=== PATIENT | female | born 1980 | race African-American/Black ===

== ENCOUNTER 2019-04-05 06:42 | Emergency (ER) | payer MEDICAID ==
[~2019-04-05] VITALS: Ht 170.2 cm; Wt 117.9 kg
[2019-04-05 06:42] VITALS: BP 110/54
--- NOTE | 2019-04-05 06:42 | NUR ---
PT AMBULATED TO BED #2
--- NOTE | 2019-04-05 06:50 | NUR ---
38 Y/O F PRESENTS TO ED WITH C/O MIGRAINE ZAVALA X 7HOURS AGO. AAOX4. 05/26 ZAVALA, POUNDING ZAVALA. +NAUSEA AND LIGHT SENSITIVITY. PT HAS SORENESS TO FACE. PT SELF MEDICATED WITH TYLENOL AND EXCEDRIN ON 04/04 THEN MOTRIN AT 0100. PT ATTACHED TO MONITOR. SYSTEM. WILL CONTINUE TO MONITOR.
--- NOTE | 2019-04-05 07:07 | NUR ---
REPORT GIVEN TO EMILY GONZALEZ. TRANSFER OF CARE AT THIS TIME.
--- NOTE | 2019-04-05 07:09 | NUR ---
ER AT BEDSIDE
[2019-04-05] MEDS ORDERED: METOCLOPRAMIDE 10 MG/2 ML INJ VIAL IVP ONE (07:20)
[2019-04-05] MEDS ORDERED: NACL 0.9% 1,000 ML IV ONE (07:20)
[2019-04-05] MEDS ORDERED: diphenhydrAMINE 50 MG/ML VIAL IVP ONE (07:20)
--- NOTE | 2019-04-05 07:28 | NUR ---
Female Sequins Stringer accompanied female patient for BREAST EXAM.
[2019-04-05] MEDS ORDERED: KETOROLAC 15 MG/ML VIAL IVP ONE (08:40)
--- NOTE | 2019-04-05 08:40 | NUR ---
PT RESTING IN BED WITH EYES CLOSED, AROUSABLE TO NAME, U/S AT BEDISDE JUST FINISHED, PT REPORTS PAIN AT 02/23 STATING THAT PAIN MEDS DID NOT HELP RELIEVE PAIN.
--- NOTE | 2019-04-05 08:47 | NUR ---
PT BRADYCARDIC AT 42 BEATS PER MIN, PER PT USUALLY HAS LOW HEART RATE AND LOW BP, CURRENT BP 105/45. PT DENIES CP, DIZZINES, N/V, NO EDEMA PRESENT.
[2019-04-05] MEDS ORDERED: ACETAMINOPHEN EXTRA STRENGTH 500 MG TAB ONE (09:28)
[2019-04-05] MEDS ORDERED: ACETAMINOPHEN EXTRA STRENGTH 500 MG TAB PO ONE (09:30)
--- NOTE | 2019-04-05 10:03 | NUR ---
pt resting in bed, arousable to name, vss, reports tylenol helped w/ pain, pain at 7/10, reports sensitivity to light.
--- NOTE | 2019-04-05 12:35 | NUR ---
IV removed, catheter intact and site benign. Applied folded 4x4 gauze and tape to stop bleeding.
--- NOTE | 2019-04-05 12:40 | NUR ---
Patient discharged with v/s stable. Written and verbal after care instructions given and explained. Patient alert, oriented and verbalized understanding of instructions. Ambulatory with steady gait. All questions addressed prior to discharge. ID band removed. Patient advised to follow up with PMD. Rx of VISTARIL, MOTRIN given. Patient educated on indication of medication including possible reaction and side effects. Opportunity to ask questions provided and answered.
[2019-04-05 12:41] VITALS: BP 111/57
== END 2019-04-05 12:40 | disposition home or self-care (01) ==
LOC: MED 06:42
DX: R51 Headache (principal); N63.20 Unspecified lump in the left breast, unspecified quadrant; G43.909 Migraine, unspecified, not intractable, without status migrainosus
CPT/HCPCS: 76641; 81002; 81025; 96374; 96375; 99284; J1200; J1885; J2765; Q0092

== ENCOUNTER 2019-05-13 07:04 | Emergency (ER) | payer MEDICAID ==
[~2019-05-13] VITALS: Ht 167.6 cm; Wt 128.8 kg
[2019-05-13 07:13] VITALS: BP 109/77
--- NOTE | 2019-05-13 07:18 | NUR ---
Patient ambulated to bed 12. RN evaluating patient at bedside.
[2019-05-13] MEDS ORDERED: HYDROcodone/APAP 5/325 MG 1 TAB TAB PO ONE (07:30)
[2019-05-13] MEDS ORDERED: PROCHLORPERAZINE 10 MG/2 ML VIAL IM ONE (07:30)
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
--- NOTE | 2019-05-13 08:58 | NUR ---
PT SLEEPING IN BED, AROUSABLE TO NAME, REPORTS PAIN IS GOING AWAY AT 2/10. STATES SHE FEELS DIZZY, SAT PT UP, PT REPORTED THAT SITTING UP HELPED WITH DIZZINESS.
--- NOTE | 2019-05-13 09:39 | NUR ---
PT RESTING IN BED, REPORTING THAT DIZZINESS IS INCREASING, PT BRADYCARDIC AT 48, BP 99/54. PT STATES THAT HER BP IS USUALLY LOW. ER NOTIFIED.
--- NOTE | 2019-05-13 12:02 | NUR ---
PT SLEEPING IN BED, AROUSABLE TO NAME, PT STATES PAIN IS AT 7/10 AND STILL REPORTS DIZINESS. PT STILL LIBRA AT 48, COSTUMING SUPERVISOR SHOWS SINUS RHYTHM, CAP REFIL <3 SEC, AAOX4.
[2019-05-13 12:52] VITALS: BP 106/63
--- NOTE | 2019-05-13 12:52 | NUR ---
Patient discharged with v/s stable. Written and verbal after care instructions given and explained. Patient alert, oriented and verbalized understanding of instructions. Ambulatory with steady gait. All questions addressed prior to discharge. ID band removed. Patient advised to follow up with PMD. Rx of COMPAZINE AND IMITREX given. Patient educated on indication of medication including possible reaction and side effects. Opportunity to ask questions provided and answered. CALLED EX- FOR A RIDE.
== END 2019-05-13 12:52 | disposition home or self-care (01) ==
LOC: MED 07:04
DX: G43.909 Migraine, unspecified, not intractable, without status migrainosus (principal); M54.5 Low back pain; Z98.890 Other specified postprocedural states; Z88.6 Allergy status to analgesic agent
CPT/HCPCS: 96372; 99283; J0780

== ENCOUNTER 2019-05-15 02:06 | Emergency (ER) | payer MEDICAID, OTHER ==
[~2019-05-15] VITALS: Ht 167.6 cm; Wt 122.5 kg
[2019-05-15 02:08] VITALS: BP 125/59
[2019-05-15] MEDS ORDERED: MORPHINE SULFATE 4 MG/ML SYR IM ONE (02:25)
[2019-05-15] MEDS ORDERED: KETOROLAC 60 MG/2 ML VIAL IM ONE (02:25)
[2019-05-15 04:56] VITALS: BP 125/59
== END 2019-05-15 04:56 | disposition home or self-care (01) ==
LOC: MED 02:06
DX: S30.0XXA Contusion of lower back and pelvis, initial encounter (principal); Z98.890 Other specified postprocedural states; Z88.8 Allergy status to other drugs, medicaments and biological substances; W19.XXXA Unspecified fall, initial encounter; Y93.F9 Activity, other caregiving; Y92.89 Other specified places as the place of occurrence of the external cause; Y99.8 Other external cause status
CPT/HCPCS: 72170; 81025; 96372; 99283; J1885; J2270; Q0092

== ENCOUNTER 2019-05-25 03:28 | Emergency (ER) | payer MEDICAID, OTHER ==
[~2019-05-25] VITALS: Ht 167.6 cm; Wt 122.5 kg
[2019-05-25 03:40] VITALS: BP 131/70
--- NOTE | 2019-05-25 03:40 | NUR ---
to bed # 08 ambulatory
[2019-05-25 04:00] VITALS: BP 131/70
--- NOTE | 2019-05-25 04:00 | NUR ---
38 Y/O F PRESENTS TO ED WITH C/O MIGRAINE X2 DAYS. +NAUSEA AND LIGHT SENSITIVITY. PT SELF MEDICATED WITH TYLENOL, NO RELIEF OF SYMPTOMS. NO VISUAL CHANGES. LIGHT TURNED OFF FOR PT COMFORT. BEDRAIL X1 UP. BED IN LOCKED POSITION. WILL CONTINUE TO MONITOR.
[2019-05-25] MEDS ORDERED: MORPHINE SULFATE 4 MG/ML SYR IM ONE (04:20)
--- NOTE | 2019-05-25 04:50 | NUR ---
PT REPORTS UNCHANGED PAIN LEVEL, PAIN 10/10. ERMD MADE AWARE.
[2019-05-25] MEDS ORDERED: traMADol 50 MG TAB PO ONE (05:05)
== END 2019-05-25 05:58 | disposition home or self-care (01) ==
LOC: MED 03:28
DX: G43.909 Migraine, unspecified, not intractable, without status migrainosus (principal); Z88.6 Allergy status to analgesic agent
CPT/HCPCS: 96372; 99283; J2270

== ENCOUNTER 2019-07-07 15:19 | Emergency (ER) | payer SELFPAY ==
[~2019-07-07] VITALS: Ht 170.2 cm; Wt 117.9 kg
[2019-07-07 15:25] VITALS: BP 125/68
--- NOTE | 2019-07-07 15:25 | NUR ---
PT AMBULATED TO BED
[2019-07-07] MEDS ORDERED: HYDROcodone/APAP 7.5/325 MG 1 TAB PO ONE (15:45)
[2019-07-07] MEDS ORDERED: PROCHLORPERAZINE 10 MG/2 ML VIAL IM ONE (15:45)
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
--- NOTE | 2019-07-07 15:53 | NUR ---
38/F PRESENTS TO ED, C/O HEADACHE SINCE LAST NIGHT. REPORTS NAUSEA, DENIES VOMITING. DENIES LIGHT OR SOUND SENSITIVITY, DENIES DIZZINESS. PT AWAKE AND ALERT, PERRLA 3MM, GCS 15, SKIN NORMAL COLOR WARM AND DRY, RR EVEN AND UNLABORED. HX MIGRAINE OTC TYLENOL WITHOUT RELIEF
[2019-07-07 16:25] VITALS: BP 125/68
--- NOTE | 2019-07-07 16:25 | NUR ---
Patient discharged with v/s stable. Written and verbal after care instructions given and explained. Patient alert, oriented and verbalized understanding of instructions. Ambulatory with steady gait. All questions addressed prior to discharge. ID band removed. Patient advised to follow up with PMD. Rx of tylenol, tramadol given. Patient educated on indication of medication including possible reaction and side effects. Opportunity to ask questions provided and answered.
== END 2019-07-07 16:25 | disposition home or self-care (01) ==
LOC: MED 15:19
DX: G43.909 Migraine, unspecified, not intractable, without status migrainosus (principal); Z88.6 Allergy status to analgesic agent
CPT/HCPCS: 99281; 99283; J0780

== ENCOUNTER 2019-09-07 14:53 | Emergency (ER) | payer SELFPAY ==
[~2019-09-07] VITALS: Ht 168.9 cm; Wt 132.0 kg
[2019-09-07 14:56] VITALS: BP 109/54
--- NOTE | 2019-09-07 15:16 | NUR ---
PT AMBULATED TO CHAIR C
--- NOTE | 2019-09-07 15:18 | NUR ---
AMB TO BED 12
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
[2019-09-07] MEDS ORDERED: ACETAMINOPHEN EXTRA STRENGTH 500 MG TAB PO ONE (15:30)
[2019-09-07] MEDS ORDERED: NACL 0.9% 1,000 ML IV ONE (15:30)
[2019-09-07] MEDS ORDERED: diphenhydrAMINE 50 MG/ML VIAL IVP ONE (15:30)
[2019-09-07] MEDS ORDERED: PROCHLORPERAZINE 10 MG/2 ML VIAL IVP ONE (15:30)
--- NOTE | 2019-09-07 16:00 | NUR ---
PT REFUSED IV INSERTION, ONIEL TAFOYA AWARE AND WILL CANCEL IV ORDERS.
[2019-09-07 16:10] VITALS: BP 109/54
--- NOTE | 2019-09-07 16:10 | NUR ---
Patient discharged with v/s stable. Written and verbal after care instructions given and explained. Patient alert, oriented and verbalized understanding of instructions. Ambulatory with steady gait. All questions addressed prior to discharge. ID band removed. Patient advised to follow up with PMD. Rx of SUMITRIPTAN, FLEXIRIL given. Patient educated on indication of medication including possible reaction and side effects. Opportunity to ask questions provided and answered.
== END 2019-09-07 16:10 | disposition home or self-care (01) ==
LOC: MED 14:53
DX: G43.909 Migraine, unspecified, not intractable, without status migrainosus (principal); Z88.8 Allergy status to other drugs, medicaments and biological substances; Z98.890 Other specified postprocedural states
CPT/HCPCS: 99283; Q0163

== ENCOUNTER 2019-09-14 23:48 | Emergency (ER) | payer SELFPAY ==
[~2019-09-14] VITALS: Ht 167.6 cm; Wt 122.5 kg
[2019-09-14 23:50] VITALS: BP 123/68
--- NOTE | 2019-09-14 23:50 | NUR ---
TO BED # 08 AMBULATORY
--- NOTE | 2019-09-15 00:03 | NUR ---
flu swab collected.
--- NOTE | 2019-09-15 00:20 | NUR ---
38 y/o female c/o cough x 2 days. rates pain 9/10 and describes it as aching and sore and is located on the chest and back. pt states chest pain is aggrevated with coughing. heart sound s1s2 present. no sob or resp distress noted. lung sounds are rhonchi bilat upper lobes, dry cough pesent, congested and runny nose present. changes of appetite present. denies any n,v,d,or fever. vss. a & o x4. allergies: motrin pmh: none.
[2019-09-15] MEDS ORDERED: ALBUTEROL 0.083% 2.5 MG/3 ML NEBU INH ONE (01:30)
--- NOTE | 2019-09-15 01:40 | NUR ---
RESPIRATORY AT BEDSIDE ADMINISTERING BREATHING TX.
--- NOTE | 2019-09-15 01:52 | NUR ---
XRAY AT BEDSIDE
[2019-09-15] MEDS ORDERED: HYDROcodone/APAP 5/325 MG 1 TAB TAB PO ONE ×2 (02:30→02:45)
--- NOTE | 2019-09-15 02:38 | NUR ---
C/O PAIN 04/25 TO THROAT. PAIN MEDS ADMINISTERED PER MD ORDERS. NOTIFIED PT TO CALL FOR HER RIDE HOME AT THIS TIME.
[2019-09-15 02:57] VITALS: BP 123/68
--- NOTE | 2019-09-15 02:57 | NUR ---
Patient discharged with v/s stable. Written and verbal after care instructions given and explained. Patient alert, oriented and verbalized understanding of instructions. Ambulatory with steady gait. All questions addressed prior to discharge. ID band removed. Patient advised to follow up with PMD. Rx of BENZONATATE, ALBUTEROL given. Patient educated on indication of medication including possible reaction and side effects. Opportunity to ask questions provided and answered.
== END 2019-09-15 02:57 | disposition home or self-care (01) ==
LOC: MED 23:48
DX: J20.9 Acute bronchitis, unspecified (principal); Z88.6 Allergy status to analgesic agent
CPT/HCPCS: 71045; 87804; 94640; 99284; J7613; Q0092

== ENCOUNTER 2019-09-17 11:47 | Emergency (ER) | payer SELFPAY ==
[~2019-09-17] VITALS: Ht 167.6 cm; Wt 122.5 kg
[2019-09-17 12:18] VITALS: BP 121/68
[2019-09-17] MEDS ORDERED: DEXAMETHASONE 10 MG/ML VIAL IM ONE (14:15)
--- NOTE | 2019-09-17 14:30 | NUR ---
Patient discharged with v/s stable. Written and verbal after care instructions given and explained. Patient alert, oriented and verbalized understanding of instructions. Ambulatory with steady gait. All questions addressed prior to discharge. ID band removed. Patient advised to follow up with PMD. Rx of PREDNISONE, TYLENOL given. Patient educated on indication of medication including possible reaction and side effects. Opportunity to ask questions provided and answered.
[2019-09-17 14:32] VITALS: BP 121/68
== END 2019-09-17 14:30 | disposition home or self-care (01) ==
LOC: MED 11:47
DX: J40 Bronchitis, not specified as acute or chronic (principal); Z88.8 Allergy status to other drugs, medicaments and biological substances
CPT/HCPCS: 96372; 99283; J1100

== ENCOUNTER 2020-02-10 01:05 | Emergency (ER) | payer SELFPAY ==
[~2020-02-10] VITALS: Ht 175.3 cm; Wt 81.6 kg
--- NOTE | 2020-02-10 01:05 | NUR ---
PT TAKEN TO TENT
[2020-02-10 01:24] VITALS: BP 116/57
--- NOTE | 2020-02-10 01:50 | NUR ---
COVID SWAB COLLECTED AND WALKED OVER TO LAB.
[2020-02-10 02:27] VITALS: BP 116/57
--- NOTE | 2020-02-10 02:28 | NUR ---
Patient discharged with v/s stable. Written and verbal after care instructions given and explained. Patient alert, oriented and verbalized understanding of instructions. Ambulatory with steady gait. All questions addressed prior to discharge. ID band removed. Patient advised to follow up with PMD. Rx of ALBUTEROL, TRAMADOL given. Patient educated on indication of medication including possible reaction and side effects. Opportunity to ask questions provided and answered.
--- NOTE | 2020-02-11 11:08 | NUR ---
COVID RESULTS RECEIVED FROM LAB. RESULT- NEGATIVE. COPY OF LAB RESULT PLACED IN INFECTION CONTROL MAILBOX.
== END 2020-02-10 02:28 | disposition home or self-care (01) ==
LOC: MED 01:05
DX: R06.02 Shortness of breath (principal); Z20.828 Contact with and (suspected) exposure to other viral communicable diseases; M79.10 Myalgia, unspecified site; R51 Headache
CPT/HCPCS: 99283; U0003

== ENCOUNTER 2020-02-20 12:20 | Emergency (ER) | payer SELFPAY ==
[~2020-02-20] VITALS: Ht 172.7 cm; Wt 104.3 kg
[2020-02-20 12:27] VITALS: BP 108/72
--- NOTE | 2020-02-20 12:35 | NUR ---
C/O N/V/D, BODY ACHES, CHILLS, PAIN DURING RESPIRATIONS X2 DAYS. PT TESTED + FOR COVID 1 WEEK AGO. PT STATES SHE FEELS SOB D/T PAIN WHEN BREATHING. RESP EVEN AND UNLABORED. SKIN COOL/DRY IN TACT. MUCOUS MEMBRANES PINK AND MOIST. VSS. NO FEVER AT THIS TIME. ALLERGIES: MOTRIN
--- NOTE | 2020-02-20 12:58 | NUR ---
dr bowman at chair side evaluating pt.
[2020-02-20 13:17] VITALS: BP 108/72
--- NOTE | 2020-02-20 13:18 | NUR ---
Patient discharged with v/s stable. Written and verbal after care instructions given and explained regarding covid 19 . Patient alert, oriented and verbalized understanding of instructions. Ambulatory with steady gait. All questions addressed prior to discharge. ID band removed. Patient advised to follow up with PMD. Rx of imodium , motrin and zofran given. Patient educated on indication of medication including possible reaction and side effects. Opportunity to ask questions provided and answered.
--- NOTE | 2020-02-20 13:20 | NUR ---
excuse from work given.
== END 2020-02-20 13:20 | disposition home or self-care (01) ==
LOC: MED 12:20
DX: U07.1 COVID-19 (principal); Z88.6 Allergy status to analgesic agent; Z98.890 Other specified postprocedural states
CPT/HCPCS: 71045; 99283

== ENCOUNTER 2020-03-12 12:53 | Emergency (ER) | payer SELFPAY ==
[~2020-03-12] VITALS: Ht 167.6 cm; Wt 117.9 kg
[2020-03-12 12:58] VITALS: BP 127/84
--- NOTE | 2020-03-12 13:13 | NUR ---
39 YO FEMALE C/O COUGH , INTERMITENT HEADACHE, X 1 MONTH,SOB X 1 WEEK, LOSS OF TASTE/SMELL X 3 DAYS. COVID TESTED + 02/10/20. MED HX: DENIES
--- NOTE | 2020-03-12 13:14 | NUR ---
RAD AT BEDSIDE
[2020-03-12] MEDS ORDERED: MORPHINE SULFATE 4 MG/ML SYR IM ONE (13:35)
[2020-03-12 13:58] VITALS: BP 127/84
--- NOTE | 2020-03-12 13:58 | NUR ---
Patient discharged with v/s stable. Written and verbal after care instructions given and explained. Patient alert, oriented and verbalized understanding of instructions. Ambulatory with steady gait. All questions addressed prior to discharge. ID band removed. Patient advised to follow up with PMD. Rx of PREDNISONE AND NORCO given. Patient educated on indication of medication including possible reaction and side effects. Opportunity to ask questions provided and answered.
== END 2020-03-12 13:58 | disposition home or self-care (01) ==
LOC: MED 12:53
DX: R05 Cough (principal); R06.02 Shortness of breath; Z88.6 Allergy status to analgesic agent; Z98.86 Personal history of breast implant removal; Z20.828 Contact with and (suspected) exposure to other viral communicable diseases
CPT/HCPCS: 71045; 96372; 99284; J2270; Q0092; U0003

== ENCOUNTER 2020-05-14 10:39 | Emergency (ER) | payer SELFPAY ==
[~2020-05-14] VITALS: Ht 170.2 cm; Wt 145.6 kg
[2020-05-14 10:46] VITALS: BP 106/64
--- NOTE | 2020-05-14 10:52 | NUR ---
PATIENT AMBULATED TO ER BED 01
--- NOTE | 2020-05-14 11:01 | NUR ---
PATIENT PRESENTS TO ED WITH SORE THROAT SINCE TODAY AND LOSS OF SMELL AND TASTE SINCE TODAY. PT STATES THAT SHE HAS HAD A DRY COUGH SINCE YESTERDAY. 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 UNKNOWN EXPOSURE TO ANY COVID + PTS. DENIES N/V/D; SKIN IS PINK/WARM/DRY; AAOX4 WITH EVEN AND STEADY GAIT; LUNGS CLEAR BL; HR EVEN AND REGULAR; PT DENIES ANY FEVER AT THIS TIME; PATIENT STATES PAIN OF 0/10 AT THIS TIME; VSS; PATIENT POSITIONED FOR COMFORT; HOB ELEVATED; BEDRAILS UP X2; BED DOWN. ER MD MADE AWARE OF PT STATUS.
[2020-05-14] MEDS ORDERED: KETOROLAC 60 MG/2 ML VIAL IM ONE (11:05)
--- NOTE | 2020-05-14 11:14 | NUR ---
COVID SWAB OBTAINED AND WALKED SPECIMEN TO LAB
--- NOTE | 2020-05-14 11:19 | NUR ---
Patient discharged with v/s stable. Written and verbal after care instructions given and explained. Patient alert, oriented and verbalized understanding of instructions. Ambulatory with steady gait. All questions addressed prior to discharge. ID band removed. Patient advised to follow up with PMD. Rx of Prednisone & [place] given. Patient educated on indication of medication including possible reaction and side effects. Opportunity to ask questions provided and answered.
[2020-05-14 11:20] VITALS: BP 106/64
== END 2020-05-14 11:19 | disposition home or self-care (01) ==
LOC: MED 10:39
DX: J02.9 Acute pharyngitis, unspecified (principal); Z20.828 Contact with and (suspected) exposure to other viral communicable diseases; Z88.6 Allergy status to analgesic agent; Z98.890 Other specified postprocedural states
CPT/HCPCS: 96372; 99283; J1885; U0003

== ENCOUNTER 2020-08-23 11:48 | Emergency (ER) | payer SELFPAY ==
[~2020-08-23] VITALS: Ht 167.6 cm; Wt 108.9 kg
[2020-08-23 11:59] VITALS: BP 123/76
--- NOTE | 2020-08-23 12:26 | NUR ---
PATIENT A/OX4, ABLE TO MAKE NEEDS KNOWN. REPORTS HAVING N/V X2 DAYS AND DIARRHEA SINCE YESTERDAY. DENIES SOB. NO FEVER/CHILLS. ABD SOFT AND NON-DISTENDED. C/O RT WRIST PAIN 02/23 NOT RELIEVED WITH USE OF TYLENOL. KEPT PATIENT IN A COMFORTABLE POSITION. SIDE RAILS UP X2. ERMD AWARE. PMH: NONE LPM: 08/23/2020
[2020-08-23] MEDS ORDERED: ACETAMINOPHEN EXTRA STRENGTH 500 MG TAB PO ONE (12:30)
--- NOTE | 2020-08-23 12:51 | NUR ---
LAB AT BEDSIDE. URINE CUP LEFT WITH PATIENT.
[2020-08-23 12:56] LABS: BASOPHILS % (AUTO) 0.3 % (0.0-2.0); EOSINOPHILS # (AUTO) 0.2 K/uL (0-0.4); EOSINOPHILS % (AUTO) 3.3 % (0.0-4.0); HEMATOCRIT 35.8 % (36-48); HEMOGLOBIN 11.5 g/dL (12.0-16.0); LYMPHOCYTES # (AUTO) 1.9 K/uL (2.5-16.5); LYMPHOCYTES % (AUTO) 34.6 % (20.5-51.1); MEAN CORPUSCULAR HEMOGLOBIN 26 pg (27-31); MEAN CORPUSCULAR HGB CONC 32 g/dL (33-37); MEAN CORPUSCULAR VOLUME 81.6 fL (80-94); MONOCYTES # (AUTO) 0.4 K/uL (0.8-1.0); MONOCYTES % (AUTO) 7.3 % (1.7-9.3); NEUTROPHILS % (AUTO) 54.5 % (42.2-75.2); PLATELET COUNT (AUTO) 219 K/uL (140-450); RED BLOOD CELL COUNT(AUTO) 4.38 MIL/uL (4.20-5.40); RED CELL DISTRIBUTION WIDTH 15.4 % (11.6-13.7); WHITE BLOOD COUNT (AUTO) 5.6 K/uL (4.8-10.8)
[2020-08-23 13:21] LABS: ALBUMIN 2.7 g/dL (3.4-5.0); ANION GAP 8.5 (8-16); CARBON DIOXIDE 28.1 mmol/L (21-32); CREATININE 0.9 mg/dL (0.6-1.3); POTASSIUM 3.6 mmol/L (3.5-5.1); TOTAL BILIRUBIN 0.3 mg/dL (0.0-1.0)
--- NOTE | 2020-08-23 13:58 | NUR ---
PATIENT UNABLE TO GIVE URINE AT THIS TIME. ERMD AWARE. MAY GO AHEAD AND DC, PATIENT HAS HER MENSRTUAL PRD TODAY.
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
[2020-08-23 14:00] VITALS: BP 123/76
== END 2020-08-23 13:58 | disposition home or self-care (01) ==
LOC: MED 11:48
DX: K52.9 Noninfective gastroenteritis and colitis, unspecified (principal); M25.531 Pain in right wrist; E66.9 Obesity, unspecified; R19.7 Diarrhea, unspecified; Z88.6 Allergy status to analgesic agent
CPT/HCPCS: 36415; 80053; 81002; 81025; 85025; 99283

== ENCOUNTER 2020-09-01 13:49 | Emergency (ER) | payer SELFPAY ==
[~2020-09-01] VITALS: Ht 167.6 cm; Wt 113.4 kg
[2020-09-01 14:01] VITALS: BP 128/55
--- NOTE | 2020-09-01 14:05 | NUR ---
LOBBY Addendum: 09/01/20 at 1410 by [email or web address] HANDED ON URINE CUP.
--- NOTE | 2020-09-01 14:43 | NUR ---
PATIENT LEFT WITHOUT BEING SEEN BY ONIEL GRADY. NO FURTHER CARE PROVIDED FOR PATIENT.
== END 2020-09-01 14:43 | disposition left against medical advice (07) ==
LOC: MED 13:49
DX: M54.5 Low back pain (principal); Z53.21 Procedure and treatment not carried out due to patient leaving prior to being seen by health care provider

== ENCOUNTER 2020-10-07 12:05 | Emergency (ER) | payer MEDICAID ==
[~2020-10-07] VITALS: Ht 172.7 cm; Wt 113.4 kg
[2020-10-07 12:11] VITALS: BP 116/63
[2020-10-07] MEDS ORDERED: diazePAM 5 MG TAB PO ONE (13:10)
[2020-10-07] MEDS ORDERED: HYDROcodone/APAP 5/325 MG 1 TAB TAB PO ONE (13:10)
[2020-10-07] MEDS ORDERED: ONDANSETRON 4 MG ODT PO ONE (13:10)
[2020-10-07] MEDS ORDERED: ACET-8386 PO (13:22)
[2020-10-07] MEDS ORDERED: DIAZ5TAB7 PO (13:22)
[2020-10-07 13:42] VITALS: BP 116/63
== END 2020-10-07 13:43 | disposition home or self-care (01) ==
LOC: MED 12:05
DX: M54.5 Low back pain (principal); G89.29 Other chronic pain; Z79.899 Other long term (current) drug therapy; Z88.8 Allergy status to other drugs, medicaments and biological substances
CPT/HCPCS: 99284; Q0162

== ENCOUNTER 2020-12-02 05:49 | Emergency (ER) | payer SELFPAY ==
[~2020-12-02] VITALS: Ht 172.7 cm; Wt 151.0 kg
[~2020-12-02 05:49] MED LIST: ACET-8386 PO; DIAZ5TAB7 PO
[2020-12-02 05:54] VITALS: BP 100/82
--- NOTE | 2020-12-02 06:08 | NUR ---
PT PRESENTS TO THE ED WITH C/O LOWER BACK PAIN. PT REPORTS "TURNING WEIRD" WHILE TAKING A SHOWER AND FALLING ON HER TAIL BONE. PT STATES SHE TOOK TYLENOL 5HRS PRIOR TO ED ARRIVAL BUT WITH MINIMAL RELIEF. PT DENIES NUMBNESS OR TINGLING. PT ABLE TO MOVE ALL EXTREMITIES. PT DENIES OTHER MEDICAL HX.
[2020-12-02] MEDS ORDERED: fentaNYL citrate 0.05 MG/ML VIAL IM ONE (06:15)
--- NOTE | 2020-12-02 07:07 | NUR ---
ENDORSED CONTINUITY OF CARE TO AM RN
--- NOTE | 2020-12-02 07:08 | NUR ---
Report received from EMILY Keane/Maciej RN; care assumed.
[2020-12-02] MEDS ORDERED: DIAZ5TAB7 PO (07:39)
[2020-12-02] MEDS ORDERED: ACET-10509 PO (07:39)
[2020-12-02] MEDS ORDERED: HYDROcodone/APAP 5/325 MG 1 TAB TAB PO ONE (07:55)
[2020-12-02 08:00] VITALS: BP 125/63
--- NOTE | 2020-12-02 08:00 | NUR ---
Patient discharged with v/s stable. Written and verbal after care instructions given and explained. Patient alert, oriented and verbalized understanding of instructions. Ambulatory with steady gait. All questions addressed prior to discharge. ID band removed. Patient advised to follow up with PMD. Rx of acetaminophen, valium given. Patient educated on indication of medication including possible reaction and side effects. Opportunity to ask questions provided and answered.
== END 2020-12-02 08:00 | disposition home or self-care (01) ==
LOC: MED 05:49
DX: S39.012A Strain of muscle, fascia and tendon of lower back, initial encounter (principal); Z88.6 Allergy status to analgesic agent; Z79.899 Other long term (current) drug therapy; W01.0XXA Fall on same level from slipping, tripping and stumbling without subsequent striking against object, initial encounter; Y93.E1 Activity, personal bathing and showering; Y92.89 Other specified places as the place of occurrence of the external cause; Y99.8 Other external cause status
CPT/HCPCS: 72100; 96372; 99283; J3010

== ENCOUNTER 2020-12-08 16:48 | Emergency (ER) | payer SELFPAY ==
[~2020-12-08] VITALS: Ht 162.6 cm; Wt 148.3 kg
[~2020-12-08 16:48] MED LIST changes: +ACET-10509 PO
[2020-12-08 16:55] VITALS: BP 133/70
[2020-12-08] MEDS ORDERED: PSEU-250 PO (17:24)
[2020-12-08] MEDS ORDERED: BENZ-196 PO (17:24)
[2020-12-08 17:31] VITALS: BP 133/70
== END 2020-12-08 17:32 | disposition home or self-care (01) ==
LOC: MED 16:48
DX: J06.9 Acute upper respiratory infection, unspecified (principal); Z88.8 Allergy status to other drugs, medicaments and biological substances; Z79.899 Other long term (current) drug therapy
CPT/HCPCS: 99283

== ENCOUNTER 2021-01-10 09:37 | Emergency (ER) | payer SELFPAY ==
[~2021-01-10] VITALS: Ht 167.6 cm; Wt 117.9 kg
[~2021-01-10 09:37] MED LIST changes: +BENZ-196 PO; +PSEU-250 PO
[2021-01-10 09:45] VITALS: BP 134/88
--- NOTE | 2021-01-10 09:49 | NUR ---
40 YEAR OLD FEMALE COMPLAINS OF MIGRAINE AND ANXIETY X LAST NIGHT. PT STATES MIGRAINE IS CONSTANT ACHING. PT STATES HISTORY OF MIGRAINE, DENIES NAUSEA, VOMITTING DIARRHEA. PT DENIES DIZZINESS OR LOC. PT AOX4, BREATHING EVEN AND UNLABORED, SKIN WARM AND DRY. BED IN LOWEST POSITION, LOCKED, BED RAIL UPX1. PMH - MIGRAINES ALLERGIES - IBUPROFEN
--- NOTE | 2021-01-10 09:49 | NUR ---
pt ambulated to bed 10.
[2021-01-10] MEDS ORDERED: KETOROLAC 30 MG/ML VIAL IVP ONE (09:55)
[2021-01-10] MEDS ORDERED: ACETAMINOPHEN EXTRA STRENGTH 500 MG TAB PO ONE (09:55)
[2021-01-10] MEDS ORDERED: METOCLOPRAMIDE 10 MG/2 ML INJ VIAL IVP ONE (09:55)
[2021-01-10] MEDS ORDERED: NACL 0.9% 1,000 ML IV ONE (09:55)
[2021-01-10] MEDS ORDERED: SUMAtriptan succinate 25 MG TAB PO ONE (10:15)
[2021-01-10] MEDS ORDERED: METOCLOPRAMIDE 10 MG TAB PO ONE (10:15)
[2021-01-10 10:44] LABS: BASOPHILS % (AUTO) 0.4 % (0.0-2.0); EOSINOPHILS # (AUTO) 0.1 K/uL (0-0.4); EOSINOPHILS % (AUTO) 2.1 % (0.0-4.0); HEMOGLOBIN 11.1 g/dL (12.0-16.0); LYMPHOCYTES # (AUTO) 2.5 K/uL (2.5-16.5); LYMPHOCYTES % (AUTO) 36.5 % (20.5-51.1); MEAN CORPUSCULAR HEMOGLOBIN 25 pg (27-31); MEAN CORPUSCULAR HGB CONC 32 g/dL (33-37); MEAN CORPUSCULAR VOLUME 80.3 fL (80-94); MONOCYTES # (AUTO) 0.6 K/uL (0.8-1.0); MONOCYTES % (AUTO) 9.3 % (1.7-9.3); NEUTROPHILS # (AUTO) 3.5 K/uL (1.8-7.7); NEUTROPHILS % (AUTO) 51.7 % (42.2-75.2); PLATELET COUNT (AUTO) 238 K/uL (140-450); RED BLOOD CELL COUNT(AUTO) 4.35 MIL/uL (4.20-5.40); RED CELL DISTRIBUTION WIDTH 17.2 % (11.6-13.7); WHITE BLOOD COUNT (AUTO) 6.7 K/uL (4.8-10.8)
--- NOTE | 2021-01-10 10:48 | NUR ---
PT STILL UNABLE TO URINATE, ERMD MADE AWARE
[2021-01-10 10:55] LABS: ANION GAP 17.7 (8-16); CREATININE 0.8 mg/dL (0.6-1.3); POTASSIUM 3.7 mmol/L (3.5-5.1)
[2021-01-10] MEDS ORDERED: METO-486 PO (11:24)
[2021-01-10] MEDS ORDERED: IMI25 PO (11:24)
[2021-01-10 11:46] VITALS: BP 134/88
--- NOTE | 2021-01-10 11:46 | NUR ---
Patient discharged with v/s stable. Written and verbal after care instructions about migraine headache given and explained. Patient alert, oriented and verbalized understanding of instructions. Ambulatory with steady gait. All questions addressed prior to discharge. ID band removed. Patient advised to follow up with PMD. Rx of imitrex, reglan given. Patient educated on indication of medication including possible reaction and side effects. Opportunity to ask questions provided and answered.
== END 2021-01-10 11:46 | disposition home or self-care (01) ==
LOC: MED 09:37
DX: G43.909 Migraine, unspecified, not intractable, without status migrainosus (principal); Z88.6 Allergy status to analgesic agent; Z79.899 Other long term (current) drug therapy
CPT/HCPCS: 36415; 80048; 81025; 85025; 99283; J8597

== ENCOUNTER 2021-02-20 09:48 | Emergency (ER) | payer SELFPAY ==
[~2021-02-20] VITALS: Ht 167.6 cm; Wt 117.9 kg
[~2021-02-20 09:48] MED LIST changes: +IMI25 PO; +METO-486 PO
[2021-02-20 09:52] VITALS: BP 126/89
--- NOTE | 2021-02-20 10:00 | NUR ---
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 PM:ROOPA. Addendum: 02/20/21 at [facility] by [facility] NO DEFORMITY OR SWELLING TO RIGHT WRIST
[2021-02-20] MEDS ORDERED: METH-1681 PO (11:53)
[2021-02-20 12:13] VITALS: BP 132/84
--- NOTE | 2021-02-20 12:15 | NUR ---
Patient discharged with v/s stable. Written and verbal after care instructions given SHOULDER PAIN, AND LUMBAR SPRAIN and explained. Patient alert, oriented and verbalized understanding of instructions. Ambulatory with steady gait. All questions addressed prior to discharge. ID band removed. Patient advised to follow up with PMD. Rx of ROBAXIN 500MG PO TID PRN PAIN given. Patient educated on indication of medication including possible reaction and side effects. Opportunity to ask questions provided and answered.
== END 2021-02-20 12:15 | disposition home or self-care (01) ==
LOC: MED 09:48
DX: S39.012A Strain of muscle, fascia and tendon of lower back, initial encounter (principal); M25.531 Pain in right wrist; M25.551 Pain in right hip; I10 Essential (primary) hypertension; X58.XXXA Exposure to other specified factors, initial encounter; Y93.89 Activity, other specified; Y92.89 Other specified places as the place of occurrence of the external cause; Y99.8 Other external cause status
CPT/HCPCS: 99283

== ENCOUNTER 2021-03-25 19:24 | Emergency (ER) | payer SELFPAY ==
[~2021-03-25] VITALS: Ht 167.6 cm; Wt 150.1 kg
[~2021-03-25 19:24] MED LIST changes: +METH-1681 PO
[2021-03-25 21:04] VITALS: BP 123/69
--- NOTE | 2021-03-25 21:07 | NUR ---
TO LOBBY A/W BED AMBULATORY
--- NOTE | 2021-03-25 22:55 | NUR ---
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 PT STATES R WRIST THROBBING ACHY. 01/23, TAKEN NAPROXEN AND UNK MUSCLE RELAXANT THAT DOES NOT WORK. ROM INTACT. SKIN INTACT WARM PINK DRY. AX: MOTRIN PMH: DENIES
--- NOTE | 2021-03-25 23:45 | NUR ---
splint placed by emt
--- NOTE | 2021-03-26 00:15 | NUR ---
Patient discharged with v/s stable. Written and verbal after care instructions given and explained. Patient verbalized understanding. Ambulatory with steady gait. All questions addressed prior to discharge. Advised to follow up with PMD.
[2021-03-26 00:17] VITALS: BP 123/69
== END 2021-03-26 00:15 | disposition home or self-care (01) ==
LOC: MED 19:24
DX: M65.4 Radial styloid tenosynovitis [de Quervain] (principal); G43.909 Migraine, unspecified, not intractable, without status migrainosus; Z88.6 Allergy status to analgesic agent; Z79.899 Other long term (current) drug therapy
CPT/HCPCS: 73110; 99283

== ENCOUNTER 2021-03-30 10:24 | Emergency (ER) | payer SELFPAY ==
[~2021-03-30] VITALS: Ht 167.6 cm; Wt 127.0 kg
[2021-03-30 10:40] VITALS: BP 103/76
--- NOTE | 2021-03-30 10:46 | NUR ---
Liseth fierro in [facility] - 03/30/21 at 1048 by [email or web address] TENT 1.
--- NOTE | 2021-03-30 10:48 | NUR ---
LOBBY Addendum: 03/30/21 at 1055 by [email or web address] HANDED ON URINE CUP.
--- NOTE | 2021-03-30 10:50 | NUR ---
C/O SUBJECTIVE FEVER, CHILLS, DIARRHEA X 5 DAYS, 10/10 LOWER ABDOMINAL X 4 DAYS. TEMP 97.7 AT THIS TIME. COVID TESTED POSITIVE IN JANUARY 2020. PMH: LEFT BREAST CYST & SURGERY
--- NOTE | 2021-03-30 12:46 | NUR ---
Patient being evaluated by DR GARRETT at TRIAGE ROOM.
--- NOTE | 2021-03-30 12:50 | NUR ---
COVID PCR SWAB DONE.
[2021-03-30] MEDS: ONDANSETRON 4 MG ODT PO ONE (12:52)
[2021-03-30] MEDS ORDERED: AMOX-1000 PO (12:54)
[2021-03-30] MEDS ORDERED: LOPE-143 PO (12:54)
[2021-03-30] MEDS ORDERED: ONDA-24 PO (12:54)
--- NOTE | 2021-03-30 13:30 | NUR ---
+ RELIEF AFTER ZOFRAN. DENIES NAUSEA.
[2021-03-30 13:32] VITALS: BP 111/74
--- NOTE | 2021-03-30 13:32 | NUR ---
Patient discharged with v/s stable. Written and verbal after care instructions given and explained. Patient alert, oriented and verbalized understanding of instructions. Ambulatory with steady gait. All questions addressed prior to discharge. ID band removed. Patient advised to follow up with PMD. Rx of Amoxicillin/Potassium Clav, Imodium, Zofran given. Patient educated on indication of medication including possible reaction and side effects. Opportunity to ask questions provided and answered.
== END 2021-03-30 13:32 | disposition home or self-care (01) ==
LOC: MED 10:24
DX: R19.7 Diarrhea, unspecified (principal); R50.9 Fever, unspecified; R51.9 Headache, unspecified; Z20.822 Contact with and (suspected) exposure to COVID-19
CPT/HCPCS: 99283; Q0162; U0003

== ENCOUNTER 2021-11-14 01:16 | Emergency (ER) | payer SELFPAY ==
[~2021-11-14] VITALS: Ht 167.6 cm; Wt 145.1 kg
[~2021-11-14 01:16] MED LIST changes: +AMOX-1000 PO; -DIAZ5TAB7 PO; +DIAZ5TAB8 PO; +LOPE-143 PO; +ONDA-188 PO
[2021-11-14 01:37] VITALS: BP 100/53
[2021-11-14] MEDS ORDERED: KETOROLAC 15 MG/ML VIAL IM ONE (02:55)
[2021-11-14] MEDS ORDERED: methocarbamoL 500 MG TAB PO ONE (02:55)
--- NOTE | 2021-11-14 03:37 | NUR ---
41 Y/O FEMALE BIBS, C/O SCIATICA PARTH. PT STATES SHE HAS FLARE-UPS FROM TIME TO TIME AND THE PAIN IN HER LEGS PREVENT HER FROM SLEEPING. PT IS ABLE TO ABULATE BUT IS IN PAIN, (03/26). PT IS A/OX4, GCS-15; UNLABORED BREATHING AND SPEAKING IN FULL SENTENCES; PT DENIES FEVER, CP, SOB, OR COUGH AT THIS TIME. NO INJURY NOTED. NO BRUISING OR DEFORMITIES. PT IS RESTING BED WITH HOB RAISED AND RAIL UP X1. PT DENIES PMH ALL: IBUPROFEN DENIES MEDS
[2021-11-14 03:47] VITALS: BP 100/53
--- NOTE | 2021-11-14 03:48 | NUR ---
Patient discharged with v/s stable. Written and verbal after care instructions given and explained. Patient verbalized understanding. Ambulatory with steady gait. All questions addressed prior to discharge. Advised to follow up with PMD. VSS, A/OX4, UNLABORED BREATHING, AMBULATORY, AND CALM DEMEANOR.
== END 2021-11-14 03:48 | disposition home or self-care (01) ==
LOC: MED 01:16
DX: M54.50 Low back pain, unspecified (principal); G89.29 Other chronic pain; Z79.2 Long term (current) use of antibiotics; Z79.899 Other long term (current) drug therapy; Z79.891 Long term (current) use of opiate analgesic; Z88.6 Allergy status to analgesic agent
CPT/HCPCS: 96372; 99283; J1885

== ENCOUNTER 2021-12-11 08:02 | Emergency (ER) | payer SELFPAY ==
[~2021-12-11] VITALS: Ht 167.6 cm; Wt 156.7 kg
[2021-12-11 08:02] VITALS: BP 109/65
--- NOTE | 2021-12-11 08:05 | NUR ---
PATIENT AMBULATED TO BED 6. HAND ON URINE CUP.
--- NOTE | 2021-12-11 08:25 | NUR ---
41 y/o female bib self with c/o abdominal cramping pain and migraine headache x 1 day. Patient states she took Tylenol with no relief. Patient complains of 10/10 pain level and has light sensitivity. LMP 12/10/2021. ALLERGY: IBUPROFEN
--- NOTE | 2021-12-11 08:45 | NUR ---
Dr. Harding evaluating patient at bedside.
[2021-12-11] MEDS ORDERED: MORPHINE SULFATE 4 MG/ML SYR IM ONE (08:50)
[2021-12-11] MEDS ORDERED: ACET-8386 PO (09:08)
--- NOTE | 2021-12-11 09:33 | NUR ---
Patient discharged with v/s stable. Written and verbal after care instructions given. Patient alert, oriented and verbalized understanding of instructions. Ambulatory with steady gait. All questions addressed prior to discharge. ID band removed. Patient advised to follow up with PMD. Rx of Hydrocodone/Acetaminophen given. Opportunity to ask questions provided and answered.
--- NOTE | 2021-12-11 09:34 | NUR ---
Chart checked and completed. The patient's care was reviewed and supervised by Priya Swenson RN.
== END 2021-12-11 09:33 | disposition home or self-care (01) ==
LOC: MED 08:02
DX: R10.30 Lower abdominal pain, unspecified (principal); R19.7 Diarrhea, unspecified; Z88.6 Allergy status to analgesic agent; Z79.899 Other long term (current) drug therapy
CPT/HCPCS: 81002; 81025; 96372; 99283; J2270

== ENCOUNTER 2022-01-02 17:49 | Emergency (ER) | payer OTHER ==
[~2022-01-02] VITALS: Ht 167.6 cm; Wt 131.5 kg
[2022-01-02 17:55] VITALS: BP 102/56
--- NOTE | 2022-01-02 18:00 | NUR ---
PT AMB TO BED 9.
--- NOTE | 2022-01-02 18:09 | NUR ---
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 PT DENIES CHEST PAIN, SOB. DENIES FEVER/CHILLS. DENIES N/V/D. PT STATES SHE TOOK IBUPROFEN PRIOR TO ARRIVAL TO ED /NO SYMPTOMATIC RELIEF. DENIES PMH ALLERGIES: IBUPROFEN
[2022-01-02] MEDS ORDERED: HYDROcodone/APAP 7.5/325 MG 1 TAB PO ONE (19:15)
--- NOTE | 2022-01-02 19:17 | NUR ---
Pt report given to EMILY WILDER. Transfer of care at this time.
[2022-01-02] MEDS ORDERED: HYDR-5080 PO (19:20)
== END 2022-01-02 19:45 | disposition home or self-care (01) ==
LOC: MED 17:49
DX: S63.501A Unspecified sprain of right wrist, initial encounter (principal); Z79.899 Other long term (current) drug therapy; Z88.6 Allergy status to analgesic agent; X58.XXXA Exposure to other specified factors, initial encounter; Y93.89 Activity, other specified; Y92.89 Other specified places as the place of occurrence of the external cause; Y99.8 Other external cause status
CPT/HCPCS: 99283

== ENCOUNTER 2022-03-30 19:57 | Emergency (ER) | payer MEDICAID, OTHER ==
[~2022-03-30] VITALS: Ht 167.6 cm; Wt 151.5 kg
[~2022-03-30 19:57] MED LIST changes: +HYDR-5080 PO
[2022-03-30 20:25] VITALS: BP 110/67
--- NOTE | 2022-03-30 20:33 | NUR ---
Patient ambulated well to bed 3. Patient on monitor.
[2022-03-30] MEDS ORDERED: CIPR500T4 PO (21:36)
[2022-03-30] MEDS ORDERED: ONDA8TAB87 PO (21:36)
[2022-03-30] MEDS ORDERED: ACET-8386 PO (21:36)
[2022-03-30] MEDS ORDERED: PRED20TA5 PO (21:36)
[2022-03-30 21:46] VITALS: BP 116/74
--- NOTE | 2022-03-30 21:48 | NUR ---
Patient discharged with v/s stable. Written and verbal after care instructions given and explained. Patient alert, oriented and verbalized understanding of instructions. Ambulatory with steady gait. All questions addressed prior to discharge. ID band removed. Patient advised to follow up with PMD. Rx of CIPRO,ZOFRAN,PREDNISONE,HYDROCODONE/ACETAMINOPHEN given. Patient educated on indication of medication including possible reaction and side effects. Opportunity to ask questions provided and answered.
== END 2022-03-30 21:46 | disposition home or self-care (01) ==
LOC: MED 19:57
DX: R05.9 Cough, unspecified (principal); Z20.822 Contact with and (suspected) exposure to COVID-19; R19.7 Diarrhea, unspecified
CPT/HCPCS: 99283

== ENCOUNTER 2022-05-06 12:40 | Emergency (ER) | payer MEDICAID ==
[~2022-05-06] VITALS: Ht 167.6 cm; Wt 148.8 kg
[~2022-05-06 12:40] MED LIST changes: +CIPR500T4 PO; +ONDA8TAB87 PO; +PRED20TA5 PO
[2022-05-06 12:46] VITALS: BP 120/77
--- NOTE | 2022-05-06 12:51 | NUR ---
Liseth fierro in [facility] - 05/06/22 at 1254 by LASHON Pt ambulated to bed 3, slow, steady gait.
--- NOTE | 2022-05-06 12:51 | NUR ---
Pt wheelchair assisted to bed 03.
[2022-05-06] MEDS ORDERED: HYDROcodone/APAP 7.5/325 MG 1 TAB PO ONE (13:20)
[2022-05-06] MEDS ORDERED: ACET-8386 PO (13:38)
--- NOTE | 2022-05-06 13:52 | NUR ---
PTS LEFT KNEE WAS DRESSED USING ZAIRA WRAP X2. +CMS. PT WAS GIVEN CRUTCHES AND DISPLAYED SAFE USE OF CRUTCHES.
--- NOTE | 2022-05-06 13:54 | NUR ---
Patient discharged with v/s stable. Written and verbal after care instructions ABOUT ACUTE KNEE PAIN given and explained. Patient alert, oriented and verbalized understanding of instructions. Ambulatory with steady gait. All questions addressed prior to discharge. ID band removed. Patient advised to follow up with PMD. Rx of NORCO 5-325 given. Patient educated on indication of medication including possible reaction and side effects. Opportunity to ask questions provided and answered.
== END 2022-05-06 13:54 | disposition home or self-care (01) ==
LOC: MED 12:40
DX: M25.562 Pain in left knee (principal); Z88.6 Allergy status to analgesic agent; Z79.899 Other long term (current) drug therapy
CPT/HCPCS: 99283

== ENCOUNTER 2022-06-13 11:19 | Emergency (ER) | payer MEDICAID ==
[~2022-06-13] VITALS: Ht 175.3 cm; Wt 113.4 kg
[2022-06-13 11:22] VITALS: BP 127/74
[2022-06-13] MEDS ORDERED: ACET-8386 PO (12:40)
[2022-06-13] MEDS ORDERED: DICL20GE TP (12:40)
[2022-06-13] MEDS ORDERED: ACETAMINOPHEN EXTRA STRENGTH 500 MG TAB PO ONE (12:45)
== END 2022-06-13 13:06 | disposition home or self-care (01) ==
LOC: MED 11:19
DX: M25.562 Pain in left knee (principal); G89.29 Other chronic pain; Z79.899 Other long term (current) drug therapy; Z88.6 Allergy status to analgesic agent
CPT/HCPCS: 99283

== ENCOUNTER 2022-08-08 22:38 | Emergency (ER) | payer MEDICAID ==
[~2022-08-08] VITALS: Ht 167.6 cm; Wt 127.0 kg
[~2022-08-08 22:38] MED LIST changes: -ACET-8386 PO; +ACET-8905 PO; +DICL20GE TP
[2022-08-08 22:53] VITALS: BP 95/55
--- NOTE | 2022-08-08 23:00 | NUR ---
PT AMBULATED TO BED #6
--- NOTE | 2022-08-08 23:05 | NUR ---
NOELLE ENGLE AT BEDSIDE
[2022-08-08] MEDS ORDERED: ACETAMINOPHEN EXTRA STRENGTH 500 MG TAB PO ONE (23:10)
--- NOTE | 2022-08-08 23:13 | NUR ---
XRAY AT BEDSIDE
--- NOTE | 2022-08-08 23:15 | NUR ---
41 Y/O F PRESENTS WITH L LEG PAIN 04/25. PT STATES IT HAS BEEN GOING ON FOR MONTHS AND SHE TOOK TYLENOL WITH NO RELIEF. PT STATES PAIN IS NONSTOP AND DENIES NVD. PMH-PT DENIES ALLERGIES- IBUPROFEN
--- NOTE | 2022-08-08 23:25 | NUR ---
DR. DRAKE AT BEDSIDE
[2022-08-08] MEDS ORDERED: LID5T TP (23:33)
[2022-08-08] MEDS ORDERED: ACET-9882 PO (23:33)
--- NOTE | 2022-08-08 23:38 | NUR ---
PT STATED SHE HAS L LEG PAIN FOR A FEW MONTHS AND ASKED FOR MEDICATION STRONGER THAN WHAT DR DRAKE PRESCRIBED. I WAS ADMININISTERING THE PRESCRIBED MED, DR. DRAKE CAME IN TO EXPLAIN THE RESULTS FROM THE XRAY. ONCE DR. DRAKE LEFT, PT STATED "I FEEL LIKE I WAS BEING JUDGED FOR ADDICTION TO MEDS WHEN IT ISNT TRUE. 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 I HAVE TYLENOL AT HOME, I NEED SOMETHING FOR PAIN. DOES THE XRAY PROVE I HAVE A REAL MEDICAL ISSUE, WHICH MEANS I SHOULD BE ABLE TO GET SOMETHING FOR PAIN."
--- NOTE | 2022-08-09 00:18 | NUR ---
XRAY RESULTS FOR DISPO
--- NOTE | 2022-08-09 00:47 | NUR ---
Patient discharged with v/s stable. Written and verbal after care instructions given and explained. Patient alert, oriented and verbalized understanding of instructions. Ambulatory with steady gait. All questions addressed prior to discharge. ID band removed. Patient advised to follow up with PMD. Rx of ACETAMINOPHEN AND LIDOCAINE HYD given. Opportunity to ask questions provided and answered.
--- NOTE | 2022-08-09 01:41 | NUR ---
The patient's care was reviewed and supervised by Brooke Young RN.
== END 2022-08-09 00:47 | disposition home or self-care (01) ==
LOC: MED 22:38
DX: M25.562 Pain in left knee (principal); Z88.5 Allergy status to narcotic agent
CPT/HCPCS: 73562; 99283; Q0092

== ENCOUNTER 2022-08-14 12:47 | Emergency (ER) | payer MEDICAID ==
[~2022-08-14] VITALS: Ht 167.6 cm; Wt 148.8 kg
[~2022-08-14 12:47] MED LIST changes: +ACET-9882 PO; +LID5T TP
[2022-08-14 12:56] VITALS: BP 106/67
[2022-08-14] MEDS ORDERED: ALBUTEROL SULFATE/IPRATROPIU 3 ML SOL IH ONE (13:30)
[2022-08-14] MEDS ORDERED: ALBU0.0912 IH (14:11)
[2022-08-14] MEDS ORDERED: BENZ-300 PO (14:11)
[2022-08-14] MEDS ORDERED: PROM118S5 PO (14:11)
[2022-08-14 14:19] VITALS: BP 117/65
--- NOTE | 2022-08-14 14:19 | NUR ---
Patient discharged with v/s stable. Written and verbal after care instructions given. Patient alert, oriented and verbalized understanding of instructions. Ambulatory with steady gait. All questions addressed prior to discharge. ID band removed. Patient advised to follow up with PMD. Rx of Albuterol, Cepacol Sore Throat Lozenges and Promethazine-DM given. Opportunity to ask questions provided and answered. WORK NOTE HANDED TO PATIENT.
== END 2022-08-14 14:19 | disposition home or self-care (01) ==
LOC: MED 12:47
DX: J98.01 Acute bronchospasm (principal); Z20.822 Contact with and (suspected) exposure to COVID-19; J06.9 Acute upper respiratory infection, unspecified; B97.89 Other viral agents as the cause of diseases classified elsewhere; Z88.6 Allergy status to analgesic agent; Z79.899 Other long term (current) drug therapy
CPT/HCPCS: 94640; 99283

== ENCOUNTER 2022-09-05 13:15 | Emergency (ER) | payer MEDICAID ==
[~2022-09-05] VITALS: Ht 167.6 cm; Wt 149.7 kg
[~2022-09-05 13:15] MED LIST changes: +ALBU0.0912 IH; +BENZ-300 PO; +PROM118S5 PO
[2022-09-05 13:34] VITALS: BP 90/64
[2022-09-05] MEDS ORDERED: HYDROcodone/APAP 5/325 MG 1 TAB TAB PO ONE (13:55)
[2022-09-05] MEDS ORDERED: ACET-2619 PO (15:23)
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
--- NOTE | 2022-09-05 15:52 | NUR ---
Patient discharged with v/s stable. Written and verbal after care instructions ABOUT CONTUSION AND HEAD INJURY given and explained. Patient alert, oriented and verbalized understanding of instructions. Ambulatory with steady gait. All questions addressed prior to discharge. ID band removed. Patient advised to follow up with PMD. Rx of TYLENOL given. Patient educated on indication of medication including possible reaction and side effects. Opportunity to ask questions provided and answered.
== END 2022-09-05 15:52 | disposition home or self-care (01) ==
LOC: MED 13:15
DX: S00.03XA Contusion of scalp, initial encounter (principal); S00.81XA Abrasion of other part of head, initial encounter; Z79.899 Other long term (current) drug therapy; Z79.891 Long term (current) use of opiate analgesic; Z79.2 Long term (current) use of antibiotics; Z88.6 Allergy status to analgesic agent; W20.8XXA Other cause of strike by thrown, projected or falling object, initial encounter; Y93.89 Activity, other specified; Y92.89 Other specified places as the place of occurrence of the external cause; Y99.8 Other external cause status
CPT/HCPCS: 70450; 99284

== ENCOUNTER 2022-11-18 22:28 | Emergency (ER) | payer MEDICAID ==
[~2022-11-18] VITALS: Ht 167.6 cm; Wt 151.5 kg
[~2022-11-18 22:28] MED LIST changes: +ACET-2619 PO
[2022-11-18 23:27] VITALS: BP 111/69
--- NOTE | 2022-11-19 00:47 | NUR ---
Dr. Urrutia examining patient.
[2022-11-19] MEDS ORDERED: CYCLOBENZAPRINE 10 MG TAB PO ONE (00:50)
[2022-11-19] MEDS ORDERED: HYDROcodone/APAP 5/325 MG 1 TAB TAB PO ONE (00:50)
--- NOTE | 2022-11-19 01:56 | NUR ---
Patient taken to bed 4.
[2022-11-19] MEDS ORDERED: ACET-10509 PO (02:26)
[2022-11-19] MEDS ORDERED: LID5T TP (02:26)
[2022-11-19] MEDS ORDERED: ACET-9525 PO (02:26)
[2022-11-19 02:48] VITALS: BP 107/69
--- NOTE | 2022-11-19 02:52 | NUR ---
Patient discharged with v/s stable. Written and verbal after care instructions given and explained. Patient alert, oriented and verbalized understanding of instructions. Ambulatory with steady gaitDC WITH FAMILY. All questions addressed prior to discharge. ID band removed. Patient advised to follow up with PMD. Rx TYLENOL, LIDODERMof given. Patient educated on indication of medication including possible reaction and side effects. Opportunity to ask questions provided and answered.
== END 2022-11-19 02:39 | disposition home or self-care (01) ==
LOC: MED 22:28
DX: S39.012A Strain of muscle, fascia and tendon of lower back, initial encounter (principal); Z88.5 Allergy status to narcotic agent; Z79.899 Other long term (current) drug therapy; X58.XXXA Exposure to other specified factors, initial encounter; Y93.89 Activity, other specified; Y92.89 Other specified places as the place of occurrence of the external cause; Y99.8 Other external cause status
CPT/HCPCS: 72100; 81025; 99283

== ENCOUNTER 2023-05-07 08:43 | Emergency (ER) | payer MEDICAID ==
[~2023-05-07] VITALS: Ht 167.6 cm; Wt 147.4 kg
[~2023-05-07 08:43] MED LIST changes: +ACET-9525 PO
[2023-05-07 08:49] VITALS: BP 109/67; PULSE 69; RESP 20; TEMP 97.8; O2SAT 99
[2023-05-07] MEDS ORDERED: HYDROcodone/APAP 5/325 MG 1 TAB TAB PO ONE (09:15)
[2023-05-07] MEDS ORDERED: ALBUTEROL 0.083% 2.5 MG/3 ML NEBU INH ONE (09:15)
[2023-05-07 09:24] VITALS: PULSE 60; RESP 20; O2SAT 96
[2023-05-07 09:30] LABS: APPEARANCE,URINE CLEAR (CLEAR); BILIRUBIN,URINE NEGATIVE (NEGATIVE); BLOOD, URINE NEGATIVE (NEGATIVE); COLOR,URINE YELLOW (YELLOW); LEUKOCYTE ESTERASE ,URINE NEGATIVE (NEGATIVE); NITRITE, URINE NEGATIVE (NEGATIVE); PROTEIN,URINE NEGATIVE (NEGATIVE); UGLUCOSE NEGATIVE (NEGATIVE); UROBILINOGEN,URINE 0.2 EU/dL (0.2 - 1)
[2023-05-07] MEDS ORDERED: ACET-5629 PO (10:22)
[2023-05-07 10:49] VITALS: BP 109/67; PULSE 60; RESP 20; TEMP 97.8; O2SAT 96
== END 2023-05-07 10:47 | disposition home or self-care (01) ==
LOC: MED 08:43
DX: R10.2 Pelvic and perineal pain (principal); Z79.899 Other long term (current) drug therapy; Z79.2 Long term (current) use of antibiotics; Z88.6 Allergy status to analgesic agent
CPT/HCPCS: 81003; 81025; 94640; 99285; J7613

== ENCOUNTER 2023-06-11 12:34 | Emergency (ER) | payer MEDICAID ==
[~2023-06-11] VITALS: Ht 167.6 cm; Wt 127.0 kg
[~2023-06-11 12:34] MED LIST changes: +ACET-5629 PO
[2023-06-11 12:37] VITALS: BP 116/79; PULSE 93; RESP 18; TEMP 98; O2SAT 97
[2023-06-11 13:07] LABS: BILIRUBIN,URINE NEGATIVE (NEGATIVE); BLOOD, URINE 3+ (NEGATIVE); LEUKOCYTE ESTERASE ,URINE 3+ (NEGATIVE); NITRITE, URINE NEGATIVE (NEGATIVE); PH,URINE 6.5 (5.0-9.0); PROTEIN,URINE 2+ (NEGATIVE); UGLUCOSE NEGATIVE (NEGATIVE); UROBILINOGEN,URINE 0.2 EU/dL (0.2 - 1)
[2023-06-11 13:10] LABS: APPEARANCE,URINE CLOUDY (CLEAR)
[2023-06-11 13:11] LABS: COLOR,URINE AMBER (YELLOW)
[2023-06-11 13:18] LABS: BACTERIA,URINE FEW /HPF (None Seen); RBC,URINE 11-20 (MOD) /HPF (0-5); SQUAMOUS EPITHELIAL CELL,UR 4-10 (MOD) /LPF (0-3 (FEW))
[2023-06-11] MEDS ORDERED: MORPHINE SULFATE 4 MG/ML SYR IM ONE (13:35)
[2023-06-11] MEDS ORDERED: ACET-503 PO (13:55)
[2023-06-11] MEDS ORDERED: ONDA8TAB87 PO (13:55)
[2023-06-11] MEDS ORDERED: CIPR500T4 PO (13:55)
[2023-06-11 14:12] VITALS: BP 116/79; PULSE 93; RESP 18; TEMP 98; O2SAT 97
== END 2023-06-11 14:12 | disposition home or self-care (01) ==
LOC: MED 12:34
DX: N39.0 Urinary tract infection, site not specified (principal); J45.909 Unspecified asthma, uncomplicated; Z79.899 Other long term (current) drug therapy; Z88.5 Allergy status to narcotic agent
CPT/HCPCS: 81001; 81025; 87086; 96372; 99283; J2270